=== PATIENT | female | born 1955 | race Caucasian/White ===

== ENCOUNTER 2024-09-11 13:19 | Emergency (ER) | payer OTHER, SELFPAY ==
[2024-09-11] VITALS (10 sets, daily range): BP systolic 115–155; BP diastolic 57–77; PULSE 78–95; RESP 12–20; TEMP 36.9; O2SAT 91–97; BMI 31.6
--- NOTE | 2024-09-11 13:37 | DI.RAD.S_ITS ---
PROCEDURE: XR ACUTE ABDOMEN SERIES INDICATIONS: abdominal pain TECHNIQUE: One view chest and two views of the abdomen were acquired. COMPARISON: None. FINDINGS: Surgical changes and devices: Bilateral hip arthroplasties.. Chest: Small left pleural effusion with adjacent atelectasis versus consolidation.. Heart size is normal. No pneumoperitoneum. Abdomen: Bowel gas pattern is normal. No suspicious calcifications. Visualized solid organ contours appear normal. Bones: No suspicious bony lesions. IMPRESSION: Nonobstructive bowel gas pattern. Small left pleural effusion with adjacent atelectasis versus consolidation. Dictated by: Pete Arce M.D. on 09/11/2024 at 14:44 Approved by: Pete Arce M.D. on 09/11/2024 at 14:44
--- NOTE | 2024-09-11 13:37 | EKG_ITS ---
[place] [id number] [place] [id number] Test Date: 2024-09-11 Pat Name: Cristel Cruz Department: [facility] Room: Gender: Female Director Of Primary Care: ELVI : 1955 Requested By: Order Number: [id number] Reading MD: Rohith Werner MD Measurements Intervals [place] Rate: 90 P: 65 WV: 174 QRS: -58 QRSD: 78 T: 64 QT: 356 QTc: 435 Interpretive Statements Normal sinus rhythm Left axis deviation Low voltage QRS Cannot rule out Anterior infarct , age undetermined NO PRIOR TRACING Electronically Signed On 09-12-2024 12:10:02 PDT by Rohith Werner MD
[2024-09-11] MEDS: ONDANSETRON 4 MG/2 ML INJ IV ×2 (13:49→22:39)
[2024-09-11 13:59] LABS: Add Manual Diff / Slide Review NO; Basophils Absolute Auto 100 /uL (0-100); Basophils Percent Auto 0.7 % (0-2); Eosinophils Absolute Auto 100 /uL (0-450); Eosinophils Percent Auto 0.7 % (2-4); Hematocrit 35.9 % (36-46); Hemoglobin 11.7 g/dL (12.0-16.0); Lymphocytes Absolute Auto 1500 /uL (1100-4500); Lymphocytes Percent Auto 14.3 % (25-40); Mean Corpuscular HGB Conc 32.6 % (30-36); Mean Corpuscular Hemoglobin 25.7 PG (26-34); Mean Corpuscular Volume 78.8 fL (80-100); Monocytes Absolute Auto 900 /uL (0-900); Monocytes Percent Auto 8.8 % (3-14); Neutrophils Absolute Auto 7800 /uL (1500-7000); Neutrophils Percent Auto 75.5 % (50-75); Platelet Count 674 X10^3/uL (150-400); Red Blood Cell Count 4.55 X10^6/uL (4.0-5.2); Red Cell Distribution Width 15.4 % (11.6-14.8); White Blood Cell Count 10.3 X10^3/uL (4.5-11.0)
[2024-09-11 14:16] LABS: Alanine Aminotransferase 14 IU/L (<35); Albumin 3.7 g/dL (3.5-5.0); Albumin Globulin Ratio 1.2 (1.0-2.8); Alkaline Phosphatase 109 U/L (38-126); Aspartate Aminotransferase 27 IU/L (14-36); BUN Creatinine Ratio 17.6 (6-22); Bilirubin Total 0.8 mg/dL (0.2-1.3); Blood Urea Nitrogen 13 mg/dL (7-17); Calcium 8.9 mg/dL (8.4-10.2); Carbon Dioxide 30 mmol/L (22-32); Chloride 98 mmol/L (98-107); Estimated Glomerular Filt Rate > 60 mL/min (>60); Globulin 3.2 g/dL (1.7-4.1); Glucose 103 mg/dL (70-99); HEMOLYSIS < 15 (0-50); Lipase 152 U/L (23-300); Potassium 3.1 mmol/L (3.4-5.1); Sodium 136 mmol/L (137-145); Total Protein 6.9 g/dL (6.3-8.2)
--- NOTE | 2024-09-11 20:41 | DI.CT.S_ITS ---
PROCEDURE: CT ABDOMEN PELVIS W CON INDICATIONS: bilat upper abd pain TECHNIQUE: After the administration of intravenous contrast, axial sections acquired from the lung bases to the pubic symphysis. Coronal and sagittal reformats were performed. For radiation dose reduction, the following was used: automated exposure control, adjustment of mA and/or kV according to patient size. COMPARISON: [facility], CR, XR ACUTE ABDOMEN SERIES, 09/11/2024, 13:51. FINDINGS: Image quality: Diagnostic. Lower Chest: No significant findings. Small hiatal hernia. ABDOMEN: Liver: No solid mass. Hepatic steatosis. Gallbladder: No radiopaque gallstones or wall thickening. Biliary ducts: No biliary dilation. Pancreas: No ductal dilation. Spleen: Size is within normal limits. Adrenal Glands: No adrenal nodules. Kidneys and Ureters: No hydronephrosis. No solid mass. No complex renal cystic lesion which requires follow up. Stomach and Bowel: Normal colonic caliber, without significant wall thickening. Colonic diverticulosis without acute diverticulitis. No evidence for small bowel obstruction or associated inflammatory changes. Appendix not definitively visualized. Peritoneum: There is a large amount of ascites scattered throughout the abdomen and pelvis. There is extensive omental caking/peritoneal carcinomatosis along the anterior aspect of the omentum. No free air. Ventral Wall: No significant ventral hernia. Abdominal Nodes: No retroperitoneal or mesenteric adenopathy by size criteria. Vessels: Aorta and inferior vena cava are normal in size. PELVIS: Pelvic Organs: There is a possible ill-defined large cystic lesion within the right lower pelvis/adnexal region measuring 8.9 x 7.2 cm with suggestion of internal soft tissue components (image 110/series 2). Bladder: No bladder wall thickening, accounting for underdistention. Pelvic Nodes: No enlarged lymph nodes. Miscellaneous: No inguinal hernias are seen. Bones: No aggressive osseous abnormality. No acute vertebral body compression fractures. Multilevel spondylitic changes throughout the imaged spine. No suspicious osseous lesions. Status post bilateral total hip arthroplasties. Significant beam hardening artifact obscures visualization of the adjacent soft tissues in the lower pelvis. IMPRESSION: Large volume scattered ascites with moderate omental caking/peritoneal carcinomatosis and suspicious right lower pelvic cystic lesion measuring 8.9 x 7.2 cm in size. Findings are concerning for malignant ascites with peritoneal metastases and possible ovarian/adnexal primary lesion. Recommend nonemergent paracentesis and consideration for further characterization with outpatient pelvic MRI using gynecologic protocol. Other chronic findings as above. Findings were discussed with Dr. Rivera at 2123hrs Dictated by: James Grossman M.D. on 09/11/2024 at 21:13 Approved by: James Grossman M.D. on 09/11/2024 at 21:24
--- NOTE | 2024-09-11 21:22 | ED_ITS ---
HPI - General Adult General Chief complaint: Abdominal Pain Stated complaint: swollen belly maybe be blocked Time Seen by Provider: 09/11/24 18:19 Source: patient Mode of arrival: Ambulatory History of Present Illness HPI narrative: 68-year-old woman with a history of hyperlipidemia, mild depression, she has been on Ozempic but has not taken any injections for the last 3 weeks due to increasing abdominal pain, nausea and frequent emesis. She describes episodes where she will be sitting in the all of sudden get up to vomit and found to be bilious. She has developed a deeper cough. Over the last 2 days symptoms have gotten significantly worse with increasing pain through entire abdomen, distention, she notes that she has no appetite has not been eating at all but is not losing any weight. there has been no chest pain, fevers, headaches. She notes that she feels like she is chronically constipated but frequently has only diarrhea. Related Data Allergies Allergy/AdvReac Type Severity Reaction Status Date / Time No Known Drug Allergies Allergy Verified 09/11/24 13:30 Review of Systems Review of Systems Narrative: Pertinent positive and negative findings as per HPI Patient History Medical History (Updated 09/12/24 @ 02:46 by Dorothea Rivera MD) Hyperlipidemia Social History Smoking Status: Never smoker Smoking Status: Never smoker Exam Initial Vital Signs Initial Vital Signs: Vital Signs Temperature 98.4 F 09/11/24 13:30 Pulse Rate 93 H 09/11/24 13:30 Respiratory Rate 18 09/11/24 13:30 Blood Pressure 118/59 L 09/11/24 13:30 Pulse Oximetry 97 09/11/24 13:30 Oxygen Delivery Method Room Air 09/11/24 13:30 General: Notable abdominal pain however Able to give a complete and coherent history. Well-nourished well-developed HEENT: Moist mucous membranes, normal sclera with reactive pupils, Respiratory: Lungs are clear to auscultation, no wheezing no rales no rhonchi. Full and symmetrical air movement Cardiac: Regular rate and rhythm no murmurs no bruits Abdomen: Distended, full, tense without being tympanitic. Tender to deep palpation without rebound or guarding Skin: Warm and dry, no rashes Neurologic: Grossly neurologically intact with no obvious asymmetries or abnormalities Extremities: No trauma, well perfused Psych: Cooperative, appropriate insight and affect Course Orders Ordered: Discontinued Medications Hydromorphone HCl (Hydromorphone 0.5 Mg Inj) 0.5 mg IV Q15MIN PRN PRN Reason: Pain, Last Admin: 09/12/24 13:37 Dose: 0.5 mg Documented By: Admin: 09/12/24 10:58 Dose: 0.5 mg Documented By: Admin: 09/12/24 08:11 Dose: 0.5 mg Documented By: Admin: 09/12/24 06:49 Dose: 0.5 mg Documented By: Admin: 09/12/24 03:25 Dose: 0.5 mg Documented By: Admin: 09/12/24 01:01 Dose: 0.5 mg Documented By: Admin: 09/11/24 22:38 Dose: 0.5 mg Documented By: DANNI Sodium Chloride (Normal Saline 0.9%) 1,000 mls @ 150 mls/hr IV CONT TAMEKA Last Infusion: 09/12/24 15:10 Dose: 0 mls/hr Documented By: Admin: 09/12/24 13:58 Dose: 150 mls/hr Documented By: Infusion: 09/12/24 13:25 Dose: Infused Documented By: Admin: 09/12/24 06:44 Dose: 150 mls/hr Documented By: Infusion: 09/12/24 05:20 Dose: Infused Documented By: Admin: 09/11/24 22:39 Dose: 150 mls/hr Documented By: DANNI Sodium Chloride (Normal Saline 0.9%) 1,000 mls @ 1,000 mls/hr IV BOLUS ONE Stop: 09/12/24 03:41 Last Infusion: 09/12/24 06:49 Dose: Infused Documented By: Admin: 09/12/24 04:31 Dose: 1,000 mls/hr Documented By: DANNI POTASSIUM CHLORIDE IN WATER (Potassium Cl 10 Meq/100 Ml Mine) 10 meq in 100 mls @ 100 mls/hr IV Q1H TAMEKA Stop: 09/12/24 06:44 Last Infusion: 09/12/24 08:05 Dose: Infused Documented By: Admin: 09/12/24 06:49 Dose: 100 mls/hr Documented By: Infusion: 09/12/24 06:40 Dose: Infused Documented By: Admin: 09/12/24 05:40 Dose: 100 mls/hr Documented By: Infusion: 09/12/24 05:31 Dose: Infused Documented By: Admin: 09/12/24 04:31 Dose: 100 mls/hr Documented By: Infusion: 09/12/24 04:26 Dose: Infused Documented By: Admin: 09/12/24 03:26 Dose: 100 mls/hr Documented By: DANNI Ondansetron HCl (Ondansetron 4 Mg/2 Ml Inj) 4 mg IV NOW PRN PRN Reason: Nausea And Vomiting Last Admin: 09/11/24 13:49 Dose: 4 mg Documented By: DALILA Ondansetron HCl (Ondansetron 4 Mg Odt) 4 mg PO NOW PRN PRN Reason: Nausea And Vomiting Ondansetron HCl (Ondansetron 4 Mg/2 Ml Inj) 4 mg IV NOW ONE Stop: 09/11/24 22:31 Last Admin: 09/11/24 22:39 Dose: 4 mg Documented By: DANNI Ondansetron HCl (Ondansetron 4 Mg/2 Ml Inj) 4 mg IV NOW ONE Stop: 09/12/24 15:00 Last Admin: 09/12/24 15:06 Dose: 4 mg Documented By: MICHAEL Vital Signs Vital signs: Vital Signs - 8 hr 09/11/24 21:12 09/11/24 21:13 09/11/24 21:30 Pulse Rate 81 78 Respiratory Rate 20 Blood Pressure 146/70 H Pulse Oximetry 96 91 Oxygen Delivery Method Room Air Oxygen Flow Rate 09/11/24 21:30 09/11/24 22:00 09/11/24 22:00 Pulse Rate 84 Respiratory Rate 17 16 Blood Pressure 121/64 134/70 Pulse Oximetry 93 Oxygen Delivery Method Oxygen Flow Rate 09/11/24 22:30 09/11/24 22:30 09/11/24 22:41 Pulse Rate 86 95 H Respiratory Rate Blood Pressure 132/68 Pulse Oximetry 94 95 Oxygen Delivery Method Room Air Oxygen Flow Rate 09/11/24 22:41 09/11/24 23:00 09/11/24 23:00 Pulse Rate 81 Respiratory Rate 12 Blood Pressure 155/72 H 121/67 Pulse Oximetry 95 Oxygen Delivery Method Oxygen Flow Rate 09/11/24 23:30 09/11/24 23:30 06/17/25 00:00 Pulse Rate 80 Respiratory Rate 16 Blood Pressure 115/57 L 125/69 Pulse Oximetry 94 Oxygen Delivery Method Nasal Cannula Oxygen Flow Rate 2 09/12/24 00:00 09/12/24 00:30 09/12/24 00:30 Pulse Rate 81 81 Respiratory Rate 19 15 Blood Pressure 131/72 Pulse Oximetry 94 96 Oxygen Delivery Method Nasal Cannula Oxygen Flow Rate 2 Medical Decision Making Lab Data 09/11/24 13:45 09/12/24 03:21 Labs: Lab Results 09/11/24 09/12/24 Range/Units 13:45 03:21 WBC 10.3 (4.5-11.0) X10^3/uL RBC 4.55 (4.0-5.2) X10^6/uL Hgb 11.7 L (12.0-16.0) g/dL Hct 35.9 L (36-46) % MCV 78.8 L (80-100) fL MCH 25.7 L (26-34) PG MCHC 32.6 (30-36) % RDW 15.4 H (11.6-14.8) % Plt Count 674 H (150-400) X10^3/uL Neut % (Auto) 75.5 H (50-75) % Lymph % (Auto) 14.3 L (25-40) % [place] % (Auto) 8.8 (3-14) % Eos % (Auto) 0.7 L (2-4) % Baso % (Auto) 0.7 (0-2) % Neut # (Auto) 7800 H (8152-4007) /uL Lymph # (Auto) 1500 (3940-7197) /uL [place] # (Auto) 900 (0-900) /uL Eos # (Auto) 100 (0-450) /uL Baso # (Auto) 100 (0-100) /uL Sodium 136 L (137-145) mmol/L Potassium 3.1 L 3.1 L (3.4-5.1) mmol/L Chloride 98 (98-107) mmol/L Carbon Dioxide 30 (22-32) mmol/L BUN 13 (7-17) mg/dL Creatinine 0.74 (0.52-1.04) mg/dL Estimated GFR > 60 (>60) mL/min BUN/Creatinine Ratio 17.6 (6-22) Glucose 103 H (70-99) mg/dL Calcium 8.9 (8.4-10.2) mg/dL Total Bilirubin 0.8 (0.2-1.3) mg/dL AST 27 (14-36) IU/L ALT 14 (<35) IU/L Alkaline Phosphatase 109 (38-126) U/L Total Protein 6.9 (6.3-8.2) g/dL Albumin 3.7 (3.5-5.0) g/dL Globulin 3.2 (1.7-4.1) g/dL Albumin/Globulin Ratio 1.2 (1.0-2.8) Lipase 152 (23-300) U/L Urine Dip Bedside Urine Glucose Negative Bedside Urine Bilirubin - Negative Bedside Urine Ketone + 15 Urine Specific [place] 1.005 Bedside Urine Occult Blood - Negative Bedside Urine pH 5.5 Bedside Urine Protein - Negative Bedside Urine Urobilinogen - Negative Bedside Urine Nitrite - Negative Bedside Urine Leukocytes - Negative Esterase Point of care testing: Urine Dip Bedside Urine Glucose Negative Bedside Urine Bilirubin - Negative Bedside Urine Ketone + 15 Urine Specific [place] 1.005 Bedside Urine Occult Blood - Negative Bedside Urine pH 5.5 Bedside Urine Protein - Negative Bedside Urine Urobilinogen - Negative Bedside Urine Nitrite - Negative Bedside Urine Leukocytes - Negative Esterase Imaging Data CT scan - abdomen/pelvis: Radiologist's Impression: PROCEDURE: CT ABDOMEN PELVIS W CON INDICATIONS: bilat upper abd pain TECHNIQUE: After the administration of intravenous contrast, axial sections acquired from the lung bases to the pubic symphysis. Coronal and sagittal reformats were performed. For radiation dose reduction, the following was used: automated exposure control, adjustment of mA and/or kV according to patient size. COMPARISON: [facility], CR, XR ACUTE ABDOMEN SERIES, 09/11/2024, 13:51. FINDINGS: Image quality: Diagnostic. Lower Chest: No significant findings. Small hiatal hernia. ABDOMEN: Liver: No solid mass. Hepatic steatosis. Gallbladder: No radiopaque gallstones or wall thickening. Biliary ducts: No biliary dilation. Pancreas: No ductal dilation. Spleen: Size is within normal limits. Adrenal Glands: No adrenal nodules. Kidneys and Ureters: No hydronephrosis. No solid mass. No complex renal cystic lesion which requires follow up. Stomach and Bowel: Normal colonic caliber, without significant wall thickening. Colonic diverticulosis without acute diverticulitis. No evidence for small bowel obstruction or associated inflammatory changes. Appendix not definitively visualized. Peritoneum: There is a large amount of ascites scattered throughout the abdomen and pelvis. There is extensive omental caking/peritoneal carcinomatosis along the anterior aspect of the omentum. No free air. Ventral Wall: No significant ventral hernia. Abdominal Nodes: No retroperitoneal or mesenteric adenopathy by size criteria. Vessels: Aorta and inferior vena cava are normal in size. PELVIS: Pelvic Organs: There is a possible ill-defined large cystic lesion within the right lower pelvis/adnexal region measuring 8.9 x 7.2 cm with suggestion of internal soft tissue components (image 110/series 2). Bladder: No bladder wall thickening, accounting for underdistention. Pelvic Nodes: No enlarged lymph nodes. Miscellaneous: No inguinal hernias are seen. Bones: No aggressive osseous abnormality. No acute vertebral body compression fractures. Multilevel spondylitic changes throughout the imaged spine. No suspicious osseous lesions. Status post bilateral total hip arthroplasties. Significant beam hardening artifact obscures visualization of the adjacent soft tissues in the lower pelvis. IMPRESSION: Large volume scattered ascites with moderate omental caking/peritoneal carcinomatosis and suspicious right lower pelvic cystic lesion measuring 8.9 x 7.2 cm in size. Findings are concerning for malignant ascites with peritoneal metastases and possible ovarian/adnexal primary lesion. Recommend nonemergent paracentesis and consideration for further characterization with outpatient pelvic MRI using gynecologic protocol. Other chronic findings as above. Findings were discussed with Dr. Rivera at 2123hrs Dictated by: James Grossman M.D. on 09/11/2024 at 21:13 MDM Narrative Medical decision making narrative: CC: Abdominal pain and distention Complicating co-morbidities: Hyperlipidemia, depression Data collected from: patient, Differential considered: Bowel obstruction, ascites, carcinomatosis Exam documented above, pertinent findings include: 68-year-old woman who appears significantly uncomfortable with distended tight abdomen that is does not have rebound or guarding. Remainder of exam is benign Lab Test results independently reviewed as above. Pertinent findings: CBC shows no leukocytosis, hemoglobin of 11.7. Platelets elevated at 674 Chemistries show potassium low at 3.1, creatinine/renal function is appropriate. LFTs are not elevated Lipase is not elevated Imaging studies independently reviewed: Large volume scattered ascites with moderate omental caking/peritoneal carcinomatosis and suspicious right lower pelvic cystic lesion measuring 8.9 x 7.2 cm in size. Findings are concerning for malignant ascites with peritoneal metastases and possible ovarian/adnexal primary lesion Consultations: Felipe Mars: [facility], medical 2:[address] Li, admiting hosptialist. Accepts patient, will eventually go to oncology floor and will need Gyne Onc consultation. Waiting now for bed availability. Family is updated Treatments: Fluids, hydromorphone, ondansetron Re-evaluations: Long discussion with the patient and her regarding CT findings. Concerns for metastatic ovarian cancer are shared with the patient and her were explanations that tissue sample certainly needs to be obtained. Due to her increasing pain and dramatic vomiting with inability to eat over the last 48 hours they would definitely prefer more urgent hospitalization to consider paracentesis and oncology consultation. Discussion: 68-year-old woman with abdominal pain increasing over the last number of months, for the last 48 hours severe with persistent vomiting mostly bilious. CT scan shows carcinomatosis with omental matting and likely ovarian cyst with strong concern for metastatic ovarian cancer. Patient is also slightly hypokalemic. Given her pain, persistent vomiting and need for urgent diagnosis and staging she will be transferred to [facility] with the admission to the medicine service and Gyne Onc consultation. The currently waiting for a bed. While doing so will maintain IV fluid and slowly replace her potassium. We will continue with the pain and nausea medications required. Patient and are updated regarding plans for transfer as soon as bed is available Discharge Plan Departure Patient Disposition: [facility] Clinical Impression: Abdominal carcinomatosis, Intractable vomiting, Acute hypokalemia Abdominal pain Qualifiers: Abdominal location: generalized Qualified Code(s): R10.84 - Generalized abdominal pain Abdominal ascites Qualifiers: Ascites type: malignant Qualified Code(s): R18.0 - Malignant ascites Referrals: Bernadette Betancourt MD [Primary Care Provider, Medical]
[2024-09-11] MEDS: HYDROMORPHONE 0.5 MG INJ IV (22:38)
[2024-09-11] MEDS: SODIUM CHLORIDE 0.9% 1,000 ML 150 ML IV (22:39)
[2024-09-12] VITALS (33 sets, daily range): BP systolic 102–142; BP diastolic 55–75; PULSE 71–83; RESP 12–22; O2SAT 92–97
[2024-09-12] MEDS: HYDROMORPHONE 0.5 MG INJ IV ×6 (01:01→13:37)
[2024-09-12] MEDS: POTASSIUM CHLORIDE IN WATER 10 MEQ/100 ML PIGGYBACK 100 MEQ IV ×4 (03:26→06:49)
[2024-09-12 03:41] LABS: HEMOLYSIS < 15 (0-50); Potassium 3.1 mmol/L (3.4-5.1)
[2024-09-12] MEDS: SODIUM CHLORIDE 0.9% 1,000 ML 1000 ML IV (04:31)
[2024-09-12] MEDS: SODIUM CHLORIDE 0.9% 1,000 ML 150 ML IV ×2 (06:44→13:58)
[2024-09-12] MEDS: ONDANSETRON 4 MG/2 ML INJ IV (15:06)
== END 2024-09-12 15:00 | disposition short-term general hospital (02) ==
PROVIDERS: Student in an Organized Health Care Education/Training Program; Emergency Provider Emergency Medicine; PCP Family Medicine
DX: R10.84 Generalized abdominal pain (principal); R18.0 Malignant ascites; E87.6 Hypokalemia; R11.10 Vomiting, unspecified; C76.2 Malignant neoplasm of abdomen
CPT/HCPCS: 36415; 74022; 74177; 80053; 81003; 83690; 84132; 85025; 93005; 93010; 96361; 96365; 96366; 96375; 96376; 99284; J1171; J2405; Q9967